=== PATIENT | female | born 1960 | race Caucasian/White ===

== ENCOUNTER 2020-02-27 14:47 | Outpatient (CLI) | payer OTHER, SELFPAY ==
--- NOTE | ~2020-02-27 | DEXA_ITS ---
Bone Density Report Name: Merly Friedman Age: 59 Sex: Female Ethnicity: White Date of : 1960 Indication: osteopenia; parental hip fracture; history of glucocorticoids; prior fracture; asthma or emphysema; Referring Provider: NOS, STAFF PHYSICIAN Study: Bone densitometry was performed. Exam Date: February 27, 2020 Accession number: [id number] Bone Density: Region BMD T-score Z-score Classification AP Spine (L1, L2, L3) 0.940 -0.7 0.8 Normal Femoral Neck (Left) 0.640 -1.9 -0.5 Osteopenia Total Hip (Left) 0.803 -1.1 -0.1 Osteopenia World Health Organization criteria for BMD impression classify patients as: Normal (T-score at or above -1.0), Osteopenia (T-score between -1.0 and -2.5), or Osteoporosis (T-score at or below -2.5). 10-year Fracture Risk: FRAX not reported because: Prior hip or vertebral fracture Previous Exams: Region Exam Age BMD T-score BMD Change BMD Change Date g/cm2 vs Baseline vs Previous AP Spine(L1, L2, L3) 02/27/2020 59 0.940 -0.7 0.094(11.1%)# -0.009(-0.9%) 02/18/2018 57 0.949 -0.6 0.103(12.2%)# 0.103(12.2%)# 01/04/2014 53 0.846 -1.6 Total Hip(Left) 02/27/2020 59 0.803 -1.1 0.058(7.8%)# 0.007(0.9%) 02/18/2018 57 0.796 -1.2 0.051(6.8%)# 0.051(6.8%)# 01/04/2014 53 0.745 -1.6 *Denotes significance at 95% confidence level, LSC for AP Spine = 0.022 g/cm2, LSC for Total Hip = 0.027 g/cm2 Clinical Information Provided by Patient: Have had a previous hip or vertebral fracture Has had a low trauma fracture Parent has had a hip fracture Has taken Glucocorticoids Has used the following medications: HRT (i.e. estrogen/hormone therapy), Vitamin D, Calcium Has the following medical conditions: Asthma or Emphysema Patient maximum height was 65 Menopause Age: 30 Drinks caffeinated beverages Onset of menses at age 14 Number of children 2 Impression: The patient has low bone mass, based on the Left Femoral Neck T-score. The patient has risk factors, including: parental hip fracture, previous fracture, history of glucocorticoid therapy. No significant bone loss was observed. Discussion: INCREASED RISK OF FRACTURE DUE TO HISTORY OF FRACTURE. The patient's previous fracture puts the patient at high risk of a future fracture. In untreated patients, the risk of osteoporotic fracture increases approximately two-fold for each 1.0 SD decrease in T-score. Low bone density is not the only risk factor for fracture; also consider factors such as patient's age, frailty or poor health, risk of
== END 2020-02-27 14:48 | disposition home or self-care (01) ==
DX: M85.80 Other specified disorders of bone density and structure, unspecified site (principal); M85.89 Other specified disorders of bone density and structure, multiple sites
CPT/HCPCS: 77080

== ENCOUNTER 2020-07-21 13:06 | Emergency (ER) | payer OTHER, SELFPAY ==
[2020-07-21 13:11] VITALS: BP 143/76; PULSE 76; RESP 16; TEMP 36.3; O2SAT 99
--- NOTE | 2020-07-21 13:50 | ED.DIZZY ---
HPI - Dizziness General Chief Complaint: Dizziness Stated Complaint: DIZZINESS, ELEVATED BP Time Seen by Provider: 07/21/20 13:50 History of Present Illness HPI Narrative: Intermittent dizziness since yesterday. Feels like a disoriented floating sensation. Holmes better when she awoke this morning, but returned when she started moving. She has had similar episodes after using nasal irrigation in the past, but this is more severe. She became more conerned this morning when her blood pressure was elevated. No weakness, numbness, confusion. Related Data Allergies Allergy/AdvReac Type Severity Reaction Status Date / Time adhesive tape Allergy Unknown Unknown Verified 07/21/20 14:10 Penicillins Allergy Unknown Unknown Verified 07/21/20 14:10 Sulfa (Sulfonamide Allergy Unknown Hives Verified 07/21/20 14:10 Antibiotics) Review of Systems Review of Systems: All systems reviewed & are unremarkable except as noted in HPI and below Constitutional: Constitutional: Denies fever(s) and Denies weakness Eyes: Eyes: Denies change in vision ENT: Reports vertigo, Reports nasal congestion and Denies sore throat Cardiovascular: Cardiovascular: Denies chest pain Respiratory: Respiratory: Denies dyspnea Gastrointestinal: Gastrointestinal: Denies abdominal pain, Reports nausea and Denies vomiting Genitourinary: Genitourinary: Denies dysuria Neurologic: Denies confusion, Reports vertigo, Denies numbness and Denies weakness PMFSH Past Medical History Medical History (Updated 07/21/20 @ 18:35 by Riki Lara MD) Sinusitis Family History Family History (Updated 08/31/17 @ 15:01 by DOCTOR UNKNOWN) Other Hypertension Social History Social History Smoking status: Former smoker Smoking end date: 07/20/94 Alcohol intake: current Exam Const: General: healthy appearing, no acute distress and alert Nutritional Appearance: well nourished Orientation/consciousness: patient oriented x3 HENMT: Head: normal to inspection Ears: TM's normal bilaterally Mouth: Yes moist mucous membranes Eyes: Pupils: Equal, round and reactive pupils present EOM: EOMs intact bilaterally Neck: Neck: normal visual inspection Resp: Effort & Inspection: normal respiratory effort Auscultation: clear to auscultation bilaterally Cardio: Rate: regular rate Rhythm: regular rhythm Skin: General skin exam: normal color Neuro: General: patient oriented x3, moves all extremities, no focal motor deficits and CN's II-XI intact bilaterally Cranial nerves: Yes Nystagmus not present Speech: normal speech Gait exam (Neuro): Normal gait present Course Vital Signs Vital signs: Vital Signs Temperature 36.3 C L 07/21/20 13:11 Pulse Rate 76 07/21/20 13:11 Respiratory Rate 16 07/21/20 13:11 Blood Pressure 143/76 H 07/21/20 13:11 Pulse Oximetry 99 07/21/20 13:11 Temperature 36.3 C L 07/21/20 13:11 Pulse Rate 61 07/21/20 15:21 Respiratory Rate 18 07/21/20 15:21 Blood Pressure 108/68 07/21/20 15:21 Pulse Oximetry 98 07/21/20 15:21 MDM - Dizziness MDM Narrative Medical decision making narrative: History consistent with BPPV. Feeling better after meclizine BP improved without treatment. Medical Records Attestation: I reviewed the patient's medical records. Discharge Plan Discharge Clinical Impression: Benign paroxysmal positional vertigo Qualifiers: Laterality: unspecified laterality Qualified Code(s): H81.10 - Benign paroxysmal vertigo, unspecified ear Patient Disposition: Home, Self-Care Condition: Stable Instructions: Benign Paroxysmal Positional Vertigo (ED) Prescriptions: New meclizine 25 mg tablet 25 mg PO TID PRN (Reason: dizziness) Qty: 20 RF: 0 Follow-up/Referrals: MAGALIE,Jethro WHITE [Primary Care Provider] -
[2020-07-21] MEDS: MECLIZINE HCL 25 MG TABLET PO (14:07)
[2020-07-21 14:08] VITALS: BP 143/83; PULSE 70; RESP 18; O2SAT 95
[2020-07-21 14:45] VITALS: BP 130/74; PULSE 61; RESP 18; O2SAT 97
[2020-07-21 15:21] VITALS: BP 108/68; PULSE 61; RESP 18; O2SAT 98
== END 2020-07-21 15:22 | disposition home or self-care (01) ==
PROVIDERS: Emergency Provider Emergency Medicine; PCP Family Medicine
DX: H81.10 Benign paroxysmal vertigo, unspecified ear (principal); Z87.891 Personal history of nicotine dependence
CPT/HCPCS: 99283; A9270

== ENCOUNTER 2021-03-23 14:24 | Emergency (ER) | payer OTHER, SELFPAY ==
[2021-03-23] VITALS (13 sets, daily range): BP systolic 120–149; BP diastolic 66–106; PULSE 72–99; RESP 9–21; TEMP 36.6; O2SAT 98
--- NOTE | ~2021-03-23 | XR_ITS ---
EXAMINATION: XR chest 2V DATE: 03/23/2021 14:40 INDICATION: Shortness of breath and cough. COVID-19 pneumonia. TECHNIQUE: Frontal and lateral views of the chest were obtained. COMPARISON: Chest 2 views 07/07/2009 FINDINGS: There is mild scarring at the lung apices. There are patchy airspace opacities in right low er lung zone and left mid and lower lung zones. No pleural effusion or pneumothorax. The heart size i s normal. IMPRESSION: 1. Patchy airspace opacities in right lower lung zone and left mid and lower lung zones, consistent w ith COVID-19 pneumonia. Reviewed, dictated and finalized at location A. IMPRESSION: 1. Patchy airspace opacities in right lower lung zone and left mid and lower bibi ng zones, consistent with COVID-19 pneumonia.
--- NOTE | 2021-03-23 14:28 | ECG_ITS ---
Measurements Intervals [place] Rate: 89 P: 46 AK: 146 QRS: 35 QRSD: 82 T: 50 QT: 326 QTc: 397 Interpretive Statements SINUS RHYTHM NORMAL ECG Electronically Signed On 03-23-2021 17:18:48 CDT by Robin Menjivar D.O.
[2021-03-23 14:55] LABS: Basophils Percent Auto 0.1 % (0.2-1.2); Hematocrit 42.4 % (37.0-47.0); Lymphocytes Absolute Auto 0.72 K/mm3 (0.9-3.2); Lymphocytes Percent Auto 7.1 % (18.3-44.2); Mean Platelet Volume 10.4 fl (7.4-10.4); Monocytes Absolute Auto 0.4 K/mm3 (0.1-0.6); Monocytes Percent Auto 3.5 % (2.6-8.5); Neutrophils Percent Auto 88.3 % (45.5-73.1); Platelet Count Result 162 k/mm3 (150-375); Red Blood Count 4.66 M/mm3 (4.2-5.4); Red Cell Distribution Width 13.2 % (11.5-14.5); White Blood Count 10.2 K/mm3 (4.5-10.0)
[2021-03-23 15:07] LABS: Anion Gap 7 mmol/L (8-16); Blood Urea Nitrogen 16 mg/dL (7-17); Calcium 9.2 mg/dL (8.4-10.2); Carbon Dioxide 25 mmol/L (22-30); Chloride 101 mmol/L (98-107); Estimated CRCL calculation 54 ml/min; Estimated Glomerular Filt Rate > 60; Glucose 133 mg/dL (65-110); Potassium 4.5 mmol/L (3.4-5.0); Sodium 133 mmol/L (137-145)
--- NOTE | 2021-03-23 17:44 | ED.URI ---
HPI - URI/Sore Throat General Chief Complaint: Upper Respiratory Infection Stated Complaint: shortness of breath,cough Time Seen by Provider: 03/23/21 17:11 Source: patient and RN notes reviewed Mode of arrival: ambulatory Limitations: no limitations History of Present Illness HPI Narrative: This is a 61 year old female with history of asthma who presents for evaluation of cough . Patient states she was started on having symptoms of asthma exacerbation on March 14. She was started on prednisone by her doctor and using her albuterol nebulizer. She reports improvement of her asthma but she developed cough, headache, fever on March 20. She took an at home COVID test that was positive. She reports her headache and fever resolved but she continues to have cough. She denies chest pain, shortness of breath, wheezing, nausea, vomiting. She also denies loss of taste or smell and she has a good appetite. She took another COVID test today and it was still positive. She came to ER today because she wanted a chest xray. Related Data Home Medications Medication Instructions Recorded Confirmed budesonide mg 03/23/21 fluticasone furoate-vilanterol INHALATION 03/23/21 [Breo Ellipta] prednisone 03/23/21 progesterone micronized mg 03/23/21 valacyclovir 03/23/21 03/23/21 Allergies Allergy/AdvReac Type Severity Reaction Status Date / Time adhesive tape Allergy Unknown Unknown Verified 03/23/21 17:27 Penicillins Allergy Unknown Unknown Verified 03/23/21 17:27 Sulfa (Sulfonamide Allergy Unknown Hives Verified 03/23/21 17:27 Antibiotics) Review of Systems Review of Systems: All systems reviewed & are unremarkable except as noted in HPI and below [facility] Past Medical History Medical History (Updated 03/24/21 @ 00:01 by Background Estela) Asthma Sinusitis Surgical History Surgical History (Updated 03/23/21 @ 17:51 by Hannah Klein MD) History of hip surgery Family History Family History (Updated 08/31/17 @ 15:01 by DOCTOR UNKNOWN) Other Hypertension Social History Social History Smoking status: Former smoker Smoking end date: 07/20/94 Alcohol intake: current Exam Const: General: no acute distress and alert Orientation/consciousness: patient oriented x3 Eyes: EOM: EOMs intact bilaterally Chest: Chest palpation & inspection: normal inspection of the chest Resp: Effort & Inspection: normal respiratory effort, not labored, no retractions and not tachypneic Auscultation: no crackles and no rales Other: prolonged expiratory phase in bilateral bases Cardio: Rate: regular rate Rhythm: regular rhythm Heart sounds: no murmurs GI: GI Palp: Yes Soft to palpation, No Tenderness to palpation present (GI) and No Guarding due to palpation present (GI) Auscultation: normal bowel sounds Skin: General skin exam: normal color Rashes: no rashes Neuro: General: patient oriented x3, moves all extremities and CN's II-XI intact bilaterally Psych: Mental Status: mental status grossly normal Affect: normal affect Course Reevaluation(s) Reevaluation #1: I discussed discharge plan with patient. She has neb tx at home that she will continues. She still has 3 days of steroids left. Date: 03/23/21 Time: 18:34 Vital Signs Vital signs: Vital Signs Temperature 97.9 F 03/23/21 14:26 Pulse Rate 88 03/23/21 14:26 Respiratory Rate 20 03/23/21 14:26 Blood Pressure 149/74 H 03/23/21 14:26 Pulse Oximetry 98 03/23/21 14:26 Temperature 97.9 F 03/23/21 14:26 Pulse Rate 95 03/23/21 18:30 Respiratory Rate 12 03/23/21 18:30 Blood Pressure 138/85 03/23/21 18:16 Pulse Oximetry 98 03/23/21 17:17 MDM - URI/Sore Throat Lab Data Attestation: I reviewed the patient's lab results. Result diagrams: 03/23/21 14:33 03/23/21 14:33 Labs: Lab Results 03/23/21 03/23/21 Range/Units 14:33 14:33 WBC 10.2 H (4.5-10.0) K/mm3
--- NOTE | 2021-03-23 18:29 | PC.NURSE ---
During ambulation patients pulse ox on room air was 98% but decreased to 93% while walking.
== END 2021-03-23 18:50 | disposition home or self-care (01) ==
PROVIDERS: Emergency Medicine; Emergency Provider General Practice; PCP Allergy & Immunology
DX: U07.1 COVID-19 (principal); J12.82 Pneumonia due to coronavirus disease 2019; J45.909 Unspecified asthma, uncomplicated; Z87.891 Personal history of nicotine dependence
CPT/HCPCS: 36415; 71046; 80048; 85025; 93005; 99284

== ENCOUNTER 2021-03-27 13:51 | Outpatient (RCR) | payer OTHER, SELFPAY ==
[2021-03-27] MEDS: ACETAMINOPHEN 325 MG TABLET 650 MG PO (14:14)
[2021-03-27] MEDS: diphenhydrAMINE HCl CAP 25 MG CAPSULE PO (14:15)
[2021-03-27] MEDS: FAMOTIDINE 20 MG TABLET PO (14:15)
[2021-03-27 14:20] VITALS: BP 133/75; PULSE 99; RESP 16; TEMP 36.8; O2SAT 98
[2021-03-27 15:47] VITALS: BP 131/86; PULSE 94; RESP 20; TEMP 36; O2SAT 99
--- NOTE | 2021-03-28 15:53 | PC.NURSE ---
Called patient to follow-up regarding COVID antibody infusion. Patient states she feels about the same and denies any side effects at this time.
== END 2021-03-27 16:14 | disposition home or self-care (01) ==
LOC: AMCINF 13:51
PROVIDERS: PCP Internal Medicine; Referring Provider Allergy & Immunology; Visit Provider Internal Medicine Hematology & Oncology
DX: Z23 Encounter for immunization (principal); U07.1 COVID-19; J44.9 Chronic obstructive pulmonary disease, unspecified
CPT/HCPCS: A9270; J7050; M0243

== ENCOUNTER → 2022-01-22 10:18 | Outpatient (CLI) | payer OTHER, SELFPAY ==
--- NOTE | ~2022-01-22 | MR_ITS ---
EXAMINATION: MR cervical spine wo con DATE: 01/22/2022 11:10 INDICATION: Cervical neuralgia TECHNIQUE: Magnetic resonance imaging (MRI) of the cervical spine was performed without intravenous c ontrast. Sequences included sagittal T2-weighted FSE, sagittal T2-weighted FS FSE, sagittal T1-weight ed FSE, axial MERGE and axial T2-weighted FSE. COMPARISON: 01/28/2019 FINDINGS: Draining of the normal cervical lordosis. Vertebral body heights are normal. Bone marrow signal int ensity is normal. Moderate disc height loss at C3-C4 and C6-C7 and mild disc height loss at C2-C3, C4 -C5 and C5-C6. Cord signal intensity is normal. Cervical soft tissues are unremarkable. The following disc levels are specifically discussed: C2-C3: Mild disc bulge. There is mild left and moderate right uncovertebral joint osteoarthritis. The re is moderate bilateral facet joint osteoarthritis. There is moderate right and mild left neural for aminal stenosis. There is no central canal stenosis. C3-C4: Disc is bulging. There is Moderate left and severe right uncovertebral joint osteoarthritis. T here is moderate left and mild to moderate right facet joint osteoarthritis. There is moderate left a nd moderate to severe right neural foraminal stenosis. There is mild central canal stenosis with flat tening of the ventral surface of the cord. C4-C5: Disc is bulging, eccentric to the right There is severe bilateral uncovertebral joint osteoart hritis. There is moderate left and mild to moderate right facet joint osteoarthritis. There is modera te right and moderate to severe left neural foraminal stenosis. There is mild to moderate with indent ion of the right ventral surface of the cord central canal stenosis. C5-C6: Disc is bulging eccentric to the left. There is moderate right and severe left uncovertebral j oint osteoarthritis. There is moderate left and mild to moderate right facet joint osteoarthritis. Th ere is moderate left and mild to moderate right neural foraminal stenosis. There is mild to moderate central canal stenosis with indentation of the left ventral surface of the cord. C6-C7: Disc is bulging. There is moderate right and severe left uncovertebral joint osteoarthritis. T here is mild right and mild to moderate left facet joint osteoarthritis. There is mild right and mild to moderate left neural foraminal stenosis. There is mild flattening of the left ventral surface of the cord central canal stenosis. C7-T1: Disc is mildly bulging. There is mild bilateral uncovertebral joint osteoarthritis. There is m oderate right and severe left facet joint osteoarthritis. There is moderate left and no right neural foraminal stenosis. There is no central canal stenosis. IMPRESSION: 1. Mild progression of moderate to severe cervical spondylosis. Reviewed, dictated and finalized at location A.
== END ==
DX: M47.22 Other spondylosis with radiculopathy, cervical region (principal)
CPT/HCPCS: 72141

== ENCOUNTER 2023-06-12 11:49 | Emergency (ER) | payer OTHER, SELFPAY ==
[2023-06-12] VITALS (15 sets, daily range): BP systolic 126–156; BP diastolic 70–87; PULSE 64–90; RESP 12–25; TEMP 36.4; O2SAT 100
--- NOTE | ~2023-06-12 | XR_ITS ---
EXAMINATION: XR chest 2V DATE: 06/12/2023 12:34 INDICATION: Chest pain and dizziness TECHNIQUE: PA and lateral views of the chest are obtained. COMPARISON: 03/23/2021 FINDINGS: The lungs are free of acute opacities. A calcified nodule of the left upper lung zones cons istent with old granulomatous disease. No pleural effusion or pneumothorax. The cardiomediastinal michelle houette is normal. There is mild thoracic spondylosis. There is moderate osteoarthritis of the should ers. Thoracolumbar dextroscoliosis is noted. IMPRESSION: 1. No acute cardiopulmonary abnormality. Reviewed, dictated and finalized at location F. DENTIAL DOOR INSTALLER
--- NOTE | 2023-06-12 11:50 | ECG_ITS ---
Measurements Intervals [place] Rate: 81 P: 45 UT: 139 QRS: 32 QRSD: 90 T: 47 QT: 355 QTc: 414 Interpretive Statements SINUS RHYTHM BASELINE ARTIFACT- I, III, AVL NORMAL ECG COMPARED TO ECG 03/23/2021 14:36:22 NO SIGNIFICANT CHANGES Electronically Signed On 06-12-2023 15:39:18 LUMBER HANDLER by Robin Menjivar D.O.
[2023-06-12 12:16] LABS: Basophils Absolute Auto 0.1 K/mm3 (0.0-0.1); Basophils Percent Auto 0.6 % (0.2-1.2); Eosinophils Absolute Auto 0.2 K/mm3 (0-0.3); Eosinophils Percent Auto 1.3 % (0-4.4); Hematocrit 45.3 % (37.0-47.0); Hemoglobin 14.5 g/dL (12.0-15.0); Immature Granulocyte Percent A 2.5 % (0-0.5); Lymphocytes Absolute Auto 3.05 K/mm3 (0.9-3.2); Mean Corpuscular Hemoglobin 29.5 pg (26-34); Mean Corpuscular Volume 92.1 fl (80-100); Mean Platelet Volume 9.6 fl (7.4-10.4); Monocytes Absolute Auto 0.9 K/mm3 (0.1-0.6); Monocytes Percent Auto 7.3 % (2.6-8.5); Neutrophils Absolute Auto 7.7 K/mm3 (1.3-6.7); Neutrophils Percent Auto 63.3 % (45.5-73.1); Platelet Count Result 299 k/mm3 (150-375); Red Blood Count 4.92 M/mm3 (4.2-5.4); Red Cell Distribution Width 13.2 % (11.5-14.5); White Blood Count 12.2 K/mm3 (4.5-10.0)
[2023-06-12 12:25] LABS: INR 0.9; Prothrombin Time 12.7 Seconds (11.1-14.7)
[2023-06-12 12:26] LABS: Partial Thromboplastin Time 25.7 SECONDS (22.3-36.8)
[2023-06-12 12:28] LABS: Alanine Aminotransferase 17 U/L (6-35); Alkaline Phosphatase 61 U/L (38-126); Anion Gap 7 mmol/L (8-16); Aspartate Amino Transferase 25 U/L (14-36); Bilirubin,Total 0.6 mg/dL (0.2-1.3); Blood Urea Nitrogen 18 mg/dL (7-17); Carbon Dioxide 28 mmol/L (22-30); Chloride 100 mmol/L (98-107); Estimated CRCL calculation 53 ml/min; Estimated Glomerular Filt Rate > 60; Glucose 118 mg/dL (65-110); Lipase 105 U/L (23-300); Potassium 3.9 mmol/L (3.4-5.0); Sodium 135 mmol/L (137-145)
[2023-06-12 12:40] LABS: Troponin I < 0.012 ng/mL (0.000-0.034)
--- NOTE | 2023-06-12 12:52 | ED.CHESTPAIN ---
HPI - Chest Pain General Chief Complaint: Chest Pain Stated Complaint: chest pain Time Seen by Provider: 06/12/23 12:01 History of Present Illness HPI narrative: Patient is a 63-year-old female with history of asthma presenting with chest pain. Patient states that she has been having intermittent bouts of dizziness that she describes as lightheadedness and feeling off kilter . States that this is happened in the past when she was seen in the ER and diagnosed with anxiety. States that she then developed a sensation of chest pressure that was waxing and waning. No obvious alleviating or exacerbating factors. No shortness of breath, diaphoresis, palpitations. States that she does feel a bit nauseated and she did not have breakfast this morning. No leg swelling or recent travel. Patient is on estrogen supplements. No recent nasal congestion, cough, sore throat. No numbness or weakness, speech or vision changes. Related Data Home Medications Medication Instructions Recorded Confirmed budesonide 0.5 mg/2 mL suspension mg PRN Shortness Of Breath 03/23/21 for nebulization fluticasone furoate 200 inhalation 03/23/21 mcg-vilanterol 25 mcg/dose inhalation powder (Breo Ellipta) progesterone micronized 100 mg mg 03/23/21 capsule valacyclovir 1 gram tablet 1 DAILY 03/23/21 03/23/21 Allergies Allergy/AdvReac Type Severity Reaction Status Date / Time adhesive tape Allergy Unknown Unknown Verified 06/12/23 11:49 Penicillins Allergy Unknown Unknown Verified 06/12/23 11:49 Sulfa (Sulfonamide Allergy Unknown Hives Verified 06/12/23 11:49 Antibiotics) Review of Systems Review of Systems: All systems reviewed & are unremarkable except as noted in HPI and below PMFSH Past Medical History Medical History Asthma Sinusitis Surgical History Surgical History History of hip surgery Family History Family History Other Hypertension Social History Social History Smoking status: Former smoker Smoking end date: 07/20/94 Alcohol intake: current Spiritual care concerns: No Exam Narrative: GENERAL: Well-appearing, No acute distress, pleasant cooperative HEAD: Normocephalic, atraumatic. EYES: PERRLA and EOMI. ENT: Mucous membranes moist. NECK: Supple. CHEST: Clear to auscultation. No respiratory distress. HEART: Regular rate and rhythm. ABDOMEN: Soft, nontender, nondistended EXTREMITIES: Normal range of motion. No edema. SKIN: Warm, dry, no rash. NEURO: No focal deficits. Alert and oriented x3. PSYCH: Normal mood and affect. Course Vital Signs Vital signs: Vital Signs Pulse Rate 90 06/12/23 11:58 Respiratory Rate 18 06/12/23 11:58 Blood Pressure 151/87 H 06/12/23 11:58 Pulse Oximetry 100 06/12/23 11:58 Oxygen Delivery Room Air 06/12/23 11:58 Temperature 97.5 F L 06/12/23 12:07 Pulse Rate 64 06/12/23 16:00 Respiratory Rate 12 06/12/23 16:00 Blood Pressure 141/84 H 06/12/23 16:00 Pulse Oximetry 100 06/12/23 16:00 Oxygen Delivery Room Air 06/12/23 12:40 MDM - Chest Pain MDM Narrative Medical decision making narrative: patient is a 53-year-old female presenting as chest pain. Slightly hypertensive, otherwise vitals are within normal limits. Exam remarkable for the above. A heart score of 3. EKG per my interpretation shows normal sinus rhythm, normal axis and intervals, no ST elevations or depressions. Unchanged from prior. Chest x-ray without acute abnormalities. Blood work with mild leukocytosis. Patient states that she just finished a steroid burst for asthma exacerbation. Troponin undetectable x2. On re-evaluation, the patient states that her symptoms have completely resolved. She feels wel
[2023-06-12 13:24] LABS: Magnesium 2.1 mg/dL (1.6-2.3)
[2023-06-12 13:25] LABS: D Dimer 0.32 ug/mL (<0.48)
[2023-06-12] MEDS: SODIUM CHLORIDE 0.9% IV 1,000 ML 999 ML IV CONT (13:30)
[2023-06-12] MEDS: ASPIRIN 81 MG CHEWABLE TABLET 324 MG PO (13:31)
[2023-06-12] MEDS: MORPHINE SULFATE (*CRX) 4 MG/ML INJ IV PUSH (13:31)
[2023-06-12] MEDS: ONDANSETRON INJ 4 MG/2 ML VIAL IV PUSH (13:31)
[2023-06-12 15:18] LABS: Troponin I < 0.012 ng/mL (0.000-0.034)
== END 2023-06-12 17:21 | disposition home or self-care (01) ==
PROVIDERS: Emergency Medicine; Emergency Provider Emergency Medicine
DX: R07.89 Other chest pain (principal); R42 Dizziness and giddiness; J45.909 Unspecified asthma, uncomplicated; Z87.891 Personal history of nicotine dependence
CPT/HCPCS: 36415; 71046; 80053; 83690; 83735; 84484; 85025; 85380; 85610; 85730; 93005; 96361; 96374; 96375; 99284; A9270; J2270; J2405; J7030

== ENCOUNTER 2023-10-21 15:45 | Outpatient (CLI) | payer OTHER, SELFPAY ==
--- NOTE | ~2023-10-21 | CT_ITS ---
EXAMINATION: CT sinus wo con DATE: 10/21/2023 15:56 INDICATION: Chronic sinusitis. 2 previous sinus surgeries. TECHNIQUE: Computed tomography (CT) of the paranasal sinuses was performed without contrast. Iterativ e reconstruction technique was employed. Exam dose: 266.74 mGy-cm total exam DLP. COMPARISON: None FINDINGS: There is rightward bowing of the nasal septum. There is moderate soft tissue prominence of the inferior nasal turbinates. The middle nasal turbinates and uncinate processes have been surgically resected. There are large pascual ateral nasal antral windows and partial ethmoidectomies. There is patchy mild mucoperiosteal thickening of the maxillary sinuses, ethmoid air cells and right frontal sinus and moderate soft tissue thickening of the sphenoid sinuses. The mastoid air cells are well-developed and aerated. IMPRESSION: Large bilateral nasal antral windows and resection of both middle nasal turbinates and u ncinate processes Mild patchy soft tissue thickening of the maxillary sinuses, ethmoid air cells and right frontal sinu s. Moderately prominent soft tissue thickening of the sphenoid sinuses Reviewed, dictated and finalized at Location A. Reviewed, dictated and finalized at location B. IMPRESSION: Large bilateral nasal antral windows and resection of both middle nasal turbinates and uncinate processes Mild patchy soft tissue thickening of the maxillary sinuses, ethmoid air cells and right frontal sinus. Moderately prominent soft tissue thickening of the sph enoid sinuses
== END 2023-10-21 15:46 ==
LOC: MICIMG 15:45
PROVIDERS: Visit Provider Allergy & Immunology
DX: J32.0 Chronic maxillary sinusitis (principal); J32.2 Chronic ethmoidal sinusitis; J32.1 Chronic frontal sinusitis; J32.3 Chronic sphenoidal sinusitis; J34.89 Other specified disorders of nose and nasal sinuses; Z98.890 Other specified postprocedural states
CPT/HCPCS: 70486

== ENCOUNTER 2024-01-14 12:33 | Outpatient (CLI) | payer OTHER, SELFPAY ==
--- NOTE | ~2024-01-14 | MM_ITS ---
EXAMINATION: MM screening [facility] BI w frances HISTORY: Screening mammogram TECHNIQUE: Craniocaudal and mediolateral oblique 3-D tomosynthesis images were obtained and synthetic 2-D images were generated. CAD analysis was submitted and interpreted. COMPARISON: 04/29/2019, 04/18/2019, 02/18/2018 BREAST PARENCHYMAL COMPOSITION:Dense: The breasts are heterogeneously dense, which may obscure small masses. FINDINGS: No suspicious mass, calcification, or architectural distortion are identified in either lois ast to suggest malignancy. There has been no suspicious interval change. IMPRESSION: No mammographic evidence of malignancy. Recommend routine screening mammography in one year. BI-RADS Category 1: Negative Reviewed, dictated and finalized at location .
== END 2024-01-14 12:34 ==
LOC: MICIMG 12:36
DX: Z12.31 Encounter for screening mammogram for malignant neoplasm of breast (principal)
CPT/HCPCS: 77063; 77067

== ENCOUNTER 2024-08-17 14:59 | Outpatient (CLI) | payer OTHER, MEDICARE, SELFPAY ==
--- NOTE | ~2024-08-17 | XR_ITS ---
CHEST RADIOGRAPH, PA AND LATERAL CLINICAL HISTORY: cough . COMPARISON: 06/12/2023 TECHNIQUE: PA and lateral views of the chest. FINDINGS The cardiomediastinal silhouette is unremarkable. Calcified granuloma within the left mid to upper lung field, unchanged from prior. The remainder of the lungs are otherwise clear. Visualized osseous structures and soft tissues are unremarkable. IMPRESSION: No focal infiltrate or effusion. Reviewed, dictated and finalized at location A. 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
== END 2024-08-17 15:00 | disposition home or self-care (01) ==
LOC: MICIMG 15:06
PROVIDERS: Visit Provider Allergy & Immunology
DX: R05.9 Cough, unspecified (principal)
CPT/HCPCS: 71046

== ENCOUNTER 2024-09-21 14:25 | Outpatient (CLI) | payer OTHER, MEDICARE, SELFPAY ==
--- NOTE | ~2024-09-21 | CT_ITS ---
CLINICAL INDICATION: Cough COMPARISON: None. Reference was made with multiple mammograms performed most recently on 01/14/2024 an d dating back to 01/04/2014 TECHNIQUE: Multiple contiguous axial images of the chest was performed without the administration of intravenous contrast. This CT examination was performed utilizing dose reduction techniques. DLP: 200 mGy-cm FINDINGS/OBSERVATIONS: LUNG: Diffuse groundglass tree-in-bud opacification is identified within the right hemithorax. Bronchiectasis and mucous plugging are also present. Interspersed normal lung parenchyma is identified. The remainder of the lungs are clear. HEART: The heart is of normal size, without pericardial effusion. MEDIASTINUM: Scattered non-pathologically enlarged or morphologically suspicious lymph nodes within the mediastinu m, bilateral pulmonary yoly and bilateral axilla. SOFT TISSUES OF THE CHEST: Asymmetric nodularity within the upper outer quadrant of the left breast, similar to previous mammogr aphy dating back to 01/04/2014. BONES OF THE CHEST: No acute fracture. Levoscoliotic curvature of the thoracic spine is present. No lytic or blastic lesions are identified. IMPRESSION: Findings within the right hemithorax for which the most likely diagnosis is mycobacterium infection, for which clinical correlation is recommended. Repeat noncontrast enhanced CT 3-6 months is recommend ed to confirm resolution. Reviewed, dictated and finalized at location A. OR DATA ANALYST IMPRESSION: Findings within the right hemithorax for which the most likely diagnosis is myc obacterium infection, for which clinical correlation is recommended. Repeat non contrast enhanced CT 3-6 months is recommended to confirm resolution.
== END 2024-09-21 14:26 | disposition home or self-care (01) ==
PROVIDERS: PCP Allergy & Immunology
DX: R05.2 Subacute cough (principal)
CPT/HCPCS: 71250